=== PATIENT | female | born 1990 | race American Indian/Alaskan Native ===

== ENCOUNTER 2016-07-30 23:00 | Emergency (ER) | payer OTHER, MEDICAID ==
[2016-07-31] MEDS ORDERED: TYLENOL ONE (01:56)
[2016-07-31] MEDS ORDERED: TYLENOL PO ONE (02:27)
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
[2016-07-31 05:08] VITALS: BP 121/86
[2016-07-31] MEDS ORDERED: NORCO 5/325 ONE (05:22)
[2016-07-31] MEDS ORDERED: NORCO 5/325 PO ONE (05:22)
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
== END 2016-07-31 05:25 | disposition home or self-care (01) ==
LOC: ED 23:00
DX: S16.1XXA Strain of muscle, fascia and tendon at neck level, initial encounter (principal); S20.219A Contusion of unspecified front wall of thorax, initial encounter; S00.93XA Contusion of unspecified part of head, initial encounter; V49.9XXA Car occupant (driver) (passenger) injured in unspecified traffic accident, initial encounter; Y93.89 Activity, other specified; Y92.89 Other specified places as the place of occurrence of the external cause; Y99.8 Other external cause status
CPT/HCPCS: 71020; 72040; 93005; 93010; 99283